=== PATIENT | male | born 1990 | race Caucasian/White ===

== ENCOUNTER → 2023-03-05 08:27 | Outpatient (BNVA) | payer MEDICARE, MEDICAID, SELFPAY | PROVIDERS: PCP Family Medicine; Referring Provider Family Medicine; Visit Provider Psychiatry & Neurology Neurology | DX: R56.9 Unspecified convulsions (principal); G24.01 Drug induced subacute dyskinesia; G47.9 Sleep disorder, unspecified | CPT/HCPCS: 99204 ==

== ENCOUNTER 2023-03-16 02:41 | Outpatient (CLI) | payer MEDICARE, MEDICAID, SELFPAY ==
--- NOTE | 2023-03-19 23:41 | PDOC.EEG_ITS ---
Neurology EEG EEG: [facility] Department of Neurology LONG-TERM AMBULATORY EEG REPORT Date of Recordin03/16/23 at 08:50:47 to 03/17/23 at 08:55:37 Interpreting Physician: Dr. Linda Greer PCP/Referring Provider: Dr. 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 Current Medications: Home Medications Medication Instructions Recorded Confirmed Type aripiprazole 2 mg tablet 2 mg PO DAILY 10/30/22 03/05/23 History citalopram 20 mg tablet 20 mg PO DAILY 10/30/22 03/05/23 History clotrimazole 1 % topical cream 1 applic topical BID 10/30/22 03/05/23 History docusate sodium 100 mg capsule 100 mg PO DAILY 10/30/22 03/05/23 History ibuprofen 800 mg tablet 800 mg PO Q8H 10/30/22 03/05/23 History levothyroxine 112 mcg capsule 112 mcg PO DAILY 10/30/22 03/05/23 History loratadine 10 mg tablet 10 mg PO DAILY 10/30/22 03/05/23 History melatonin 3 mg capsule 3 mg PO HS PRN 10/30/22 03/05/23 History multivitamin with folic acid 400 1 tab PO DAILY 10/30/22 03/05/23 History mcg tablet (Tab-A-Ankit) testosterone 1.62 % (20.25 mg/1.25 1 packet transdermal DAILY 10/30/22 03/05/23 History gram) transdermal gel packet trazodone 100 mg tablet 100 mg PO DAILY 10/30/22 03/05/23 History zolpidem 5 mg tablet 5 mg PO QHS PRN 10/30/22 03/05/23 History lorazepam 0.5 mg tablet 0.5 mg PO ONCE PRN 03/05/23 03/05/23 Rx anxiety/claustrophobia #2 tabs METHODS: An 18-channel digitized electroencephalogram was recorded in the ambulatory setting with video. The 10/20 international system of electrode placement was used and bipolar and referential electrode montages were recorded. In addition to EEG the patient was monitored for EKG and by video. Activation procedures of photic stimulation and hyperventilation were performed if applicable. The duration of the recording was ~24 hours. DESCRIPTION OF EEG: Study complicated by T6 dysfunction nearly continuously throughout the EEG. Waking background activity: During maximal wakefulness a 9-Hz posterior background rhythm was present which was well-modulated, symmetrical, reactive to eye opening, and of moderate voltage. Faster frequencies were present in the bilateral anterior head regions. There was a normal anterior-posterior voltage gradient. Drowsy and sleeping background activity: During drowsiness, there was attenuation of the posterior dominant background rhythm and vertex waves. Normal stage II and III sleep was present with symmetrical sleep spindles, K- complexes, and vertex waves with slowing of the background rhythm to delta/theta frequencies. REM sleep manifested by rapid lateral eye movements and faster background rhythms was recorded. Arousal was unremarkable. Interictal abnormalities: none. Ictal findings: No events reported. Activating Procedures: Photic stimulation was performed which produced no posterior driving response at various flash frequencies. Hyperventilation was performed with moderate effort and produced no physiological slowing of the background. EKG: EKG revealed an irregular heart beat with ?heart block. Longest pause 1.2seconds. INTERPRETATION: This long-term EEG is normal during the awake and sleep states as well as during the activation procedures. EKG revealed an irregular heart beat with ?heart block. Longest pause 1.2seconds. PRIOR EEG: none CLINICAL CORRELATION: No focal regions of cerebral dysfunction or epileptiform activity was present. No events were captured. Epilepsy remains a clinical diagnosis and a normal EEG does not rule out epilepsy. Please note EKG changes as above. Clinical correlation is advised. Linda Greer MD
== END 2023-03-16 02:42 | disposition home or self-care (01) ==
LOC: RT 02:42
PROVIDERS: PCP Family Medicine; Visit Provider Psychiatry & Neurology Neurology
DX: I49.9 Cardiac arrhythmia, unspecified (principal); R41.840 Attention and concentration deficit; R41.89 Other symptoms and signs involving cognitive functions and awareness; E23.0 Hypopituitarism
CPT/HCPCS: 95714; 95720

== ENCOUNTER 2023-03-22 02:12 | Outpatient (CLI) | payer MEDICARE, MEDICAID, SELFPAY ==
--- NOTE | 2023-03-22 06:30 | DI.MRI_ITS ---
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 COMPARISON: No exams were available for comparison FINDINGS: CEREBRAL PARENCHYMA: There is no evidence of intracranial hemorrhage, mass effect, or shift of midline structures. There are no extra-axial fluid collections. Ventricles are not enlarged or shifted. There is no significant focal signal abnormality in the cerebellar hemispheres nor within the casi, m idbrain, and thalami. There is no abnormal signal abnormality in the periventricular white matter. No evidence of demyelin ating disease. There is no significant focal signal abnormality evident on diffusion imaging to suggest acute ischem ic event. SWI: No microhemorrhages evident. PITUITARY GLAND: Pituitary gland size is lower normal. No evidence of pituitary mass nor parasellar abnormality. No obvious abnormality in the cavernous sinuses. FLOW VOIDS: The expected flow void are noted. No evidence of obvious aneurysm nor obvious vascular ma lformation. PARANASAL SINUSES: The visualized paranasal sinuses appear unremarkable. No obvious finding . Fronta l sinuses are not developed. ORBITS: No obvious findings. IMPRESSION: No significant focal intracranial findings on this noninfused MRI scan of the brain. Pituitary gland size is lower normal. No evidence of pituitary mass. DATA REPOSITORY:
== END 2023-03-22 02:32 ==
PROVIDERS: PCP Family Medicine; Visit Provider Psychiatry & Neurology Neurology
DX: E23.0 Hypopituitarism (principal); G24.01 Drug induced subacute dyskinesia; R41.89 Other symptoms and signs involving cognitive functions and awareness
CPT/HCPCS: 70551

== ENCOUNTER → 2023-05-07 08:39 | Outpatient (BNVA) | payer MEDICARE, MEDICAID, SELFPAY | PROVIDERS: PCP Family Medicine; Referring Provider Family Medicine; Visit Provider Psychiatry & Neurology Neurology | DX: R56.9 Unspecified convulsions (principal); E23.0 Hypopituitarism | CPT/HCPCS: 99214 ==

== ENCOUNTER → 2023-11-19 10:54 | Outpatient (BNVA) | payer MEDICARE, MEDICAID, SELFPAY | PROVIDERS: PCP Family Medicine; Referring Provider Family Medicine; Visit Provider Psychiatry & Neurology Neurology | DX: R56.9 Unspecified convulsions (principal); E23.0 Hypopituitarism | CPT/HCPCS: 99213 ==

== ENCOUNTER 2024-04-21 02:42 | Outpatient (CLI) | payer MEDICARE, MEDICAID, SELFPAY ==
--- NOTE | 2024-04-21 | DI.MRI_ITS ---
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 CONTRAST MATERIAL: IV Contrast: 18 mL of Dotarem contrast administered. COMPARISON: MR MR BRAIN WO from 03/22/2023 FINDINGS: VENTRICLES AND EXTRA AXIAL SPACES: Normal in size and morphology for the patient's age. HEMORRHAGE: None. CEREBRAL PARENCHYMA: No focus of restricted diffusion to suggest acute infarct. No space-occupying le chema identified. MIDLINE SHIFT: None. BRAINSTEM/CEREBELLUM: Normal. CALVARIUM: Normal. ENHANCEMENT: No suspicious enhancement identified. VISUALIZED PARANASAL SINUSES/MASTOIDS: Clear. [place]: Normal flow void. PITUITARY GLAND: There is a thin rim of pituitary tissue seen in the floor of the sella suggesting pa rtially empty sella. There is no evidence of a pituitary or suprasellar mass. The infundibulum is m idline. The optic chiasm is unremarkable. Pituitary gland shows normal signal. OTHER FINDINGS: IMPRESSION: 1. No evidence of a pituitary mass or enhancing lesion. No suprasellar mass is identified. 2. There is a thin rim of pituitary tissue in the floor of the sella suggesting a partially empty madisyn la. DATA REPOSITORY:
[2024-04-21] MEDS: Normal Saline Flush 10 ML SYR IVP (12:29)
[2024-04-21] MEDS: Gadoterate meglumine 20 ML SYRINGE 18 ML IVP (12:30)
== END 2024-04-21 03:02 ==
PROVIDERS: PCP Family Medicine; Visit Provider Internal Medicine Endocrinology, Diabetes & Metabolism
DX: E03.8 Other specified hypothyroidism (principal)
CPT/HCPCS: 70553

== ENCOUNTER → 2024-11-17 08:17 | Outpatient (BNVA) | payer MEDICARE, MEDICAID, SELFPAY | PROVIDERS: PCP Family Medicine; Referring Provider Family Medicine; Visit Provider Psychiatry & Neurology Neurology | DX: R56.9 Unspecified convulsions (principal); E23.0 Hypopituitarism; R73.03 Prediabetes; E78.5 Hyperlipidemia, unspecified | CPT/HCPCS: 99213 ==